=== PATIENT | female | born 1975 | race Caucasian/White ===

== ENCOUNTER 2024-12-01 12:28 | Emergency (ER) | payer MEDICAID, SELFPAY ==
[2024-12-01 12:29] VITALS: BP 136/89; PULSE 72; TEMP 36.7; O2SAT 99; BMI 34.9
[2024-12-01 13:14] LABS: Basophils # 0.1 10^3/uL (0.0-0.1); Basophils % 0.7 %; Eosinophils # 0.2 10^3/uL (0.0-0.8); Eosinophils % 2.1 %; Hematocrit 42.5 % (36-47); Lymphocytes # 1.6 10^3/uL (0.8-4.8); Lymphocytes % 17.6 %; Mean Corpuscular HGB Conc 32.7 g/dL (30-55); Mean Corpuscular Hemoglobin 27.7 pg (27-33); Mean Corpuscular Volume 84.7 fl (85-98); Mean Platelet Volume 10.8 fL (7.4-10.4); Monocytes # 0.5 10^3/uL (0.2-0.9); Monocytes % 5.7 %; Neutrophils # 6.55 10^3/uL (1.8-7.7); Neutrophils % 73.5 %; Nucleated Red Blood Cells % 0 %; Platelet Count 266 10^3/cmm (157-399); Red Blood Count 5.02 10^6/uL (3.85-5.65); Red Cell Distribution Width 13.2 % (12.1-15.1); White Blood Count 8.92 10^3/uL (3.29-11.43)
[2024-12-01 13:27] LABS: HCG, Serum Qual Negative (Negative)
[2024-12-01 13:34] LABS: Alanine Aminotransferase 50 U/L (0-33); Albumin Level 4.1 g/dL (3.5-5.2); Alkaline Phosphatase 138 U/L (35-105); Anion Gap 14.7 (5-19); Aspartate Amino Transferase 48 U/L (0-32); Blood Urea Nitrogen 10 mg/dL (6-20); Calcium 9.4 mg/dL (8.5-10.5); Carbon Dioxide 24 mmol/L (22-29); Chloride 106 mmol/L (98-107); Creatinine Clr Calc Pharmacy 124.2362; Globulin 3.5 g/dL (1.3-4.6); Glomerular Filtration Rate 89.3 mL/min (90-130); Glucose 126 mg/dL (65-115); Osmolality Calculated 293 mOsm/kg (285-295); Potassium 3.7 mmol/L (3.5-5.1); Sodium 141 mmol/L (136-145); Total Bilirubin 0.3 mg/dL (0.15-1.2); Total Protein 7.6 g/dL (6.6-8.7)
[2024-12-01] MEDS: LORazepam 2 mg Tablet PO (14:05)
[2024-12-01 14:10] LABS: Bilirubin Urine Negative (Negative); Blood Urine Negative (Negative); Glucose Urine UA Negative (Normal); Ketones Urine Negative (Negative); Leukocyte Esterase Urine Negative (Negative); Nitrate Urine Negative (Negative); Protein Urine Negative (Negative); Specific Gravity, Urine 1.006 (1.005-1.030); Urine Appearance Clear (CLEAR); Urine Color Yellow (Yellow); Urobilinogen Urine 0.2 mg/dL (Negative); pH Urine 5.5 (5-7)
[2024-12-01 14:12] LABS: Add Urine Microscopic? YES; Bacteria Urine None Seen /hpf; Hyaline Casts Urine 0-4 /lpf; RBC Urine 0-2 /hpf (0-2); Squamous Epithelial Cell Urine 0-5 /hpf (0-5); WBC Urine 0-5 /hpf (0-5)
[2024-12-01 14:18] LABS: Amphetamines Screen Urine Positive (Negative); Barbiturates Screen Urine Negative (Negative); Benzodiazepines Screen Urine Negative (Negative); Cocaine Screen Urine Negative (Negative); Opiate Screen Urine Negative (Negative); PCP Screen Urine Negative (Negative); THC Screen Urine Negative (Negative)
--- NOTE | 2024-12-01 14:22 | W.ED.ANXIETY ---
HPI - Anxiety General: Chief Complaint: Anxiety Stated Complaint: MHE Time Seen by Provider: 12/01/24 12:43 History of Present Illness: 49-year-old female presents emergency room complaint of increasing anxiety depression of the last couple days she has a history of very anxious today she denies suicidal or homicidal ideation she relates her symptoms to recent loss of some close family members. Patient is very tearful does answer questions fairly well. She denies any recent illness denies any thoughts of harming herself. She was seen yesterday at [facility] for intake and advised her to come to the urgency room. She presents today. She is on venlafaxine no recent medication changes Associated symptoms: Deny chest pain, chills or fever(s) Related Data Home Medications ?Medication ?Instructions ?Recorded ?Confirmed Vital Lax 1 tab PO DAILY 12/01/24 12/01/24 albuterol sulfate 90 mcg/actuation 2 puff inhalation Q6H PRN 12/01/24 12/01/24 aerosol inhaler (Ventolin HFA) Shortness Of Breath Or Wheezing aripiprazole 2 mg tablet 2 mg PO DAILY 12/01/24 12/01/24 azithromycin 250 mg tablet See Rx Instructions .Route .COMPLEX 12/01/24 12/01/24 cetirizine 10 mg tablet (Allergy 10 mg PO DAILY 12/01/24 12/01/24 Relief (cetirizine)) cholecalciferol (vitamin D3) 25 25 mcg PO DAILY 12/01/24 12/01/24 mcg (1,000 unit) tablet (Vitamin D3) cyanocobalamin (vitamin B-12) 500 500 mcg PO DAILY 12/01/24 12/01/24 mcg tablet (Vitamin B-12) famotidine 40 mg tablet 40 mg PO BID 12/01/24 12/01/24 fluticasone propionate 50 2 spray intranasal DAILY 12/01/24 12/01/24 mcg/actuation nasal spray,suspension meloxicam 7.5 mg tablet 7.5 mg PO DAILY 12/01/24 12/01/24 ondansetron 4 mg disintegrating 4 mg PO Q6H PRN Nausea And Vomiting 12/01/24 12/01/24 tablet oxybutynin chloride 5 mg 5 mg PO DAILY 12/01/24 12/01/24 tablet,extended release 24 hr riboflavin (vitamin B2) 50 mg 50 mg PO DAILY 12/01/24 12/01/24 tablet (Vitamin B-2) topiramate 50 mg tablet 50 mg PO BID 12/01/24 12/01/24 ubrogepant 100 mg tablet (Ubrelvy) 100 mg PO DAILY PRN Migraine 12/01/24 12/01/24 Headache venlafaxine 37.5 mg 37.5 mg PO DAILY 12/01/24 12/01/24 capsule,extended release 24 hr Previous Rx's ?Medication ?Instructions ?Recorded hydroxyzine HCl 10 mg tablet 10 mg PO TID PRN anxiety #10 tabs 12/01/24 Allergies Allergy/AdvReac Type Severity Reaction Status Date / Time tramadol Allergy Unknown Verified 12/01/24 12:35 Review of Systems Const: Denies: fever(s) or chills Card: Denies: chest pain Resp: Denies: dyspnea GI: Denies: abdominal pain : Denies: dysuria, urinary frequency or urinary urgency Musc: Denies: neck pain or back pain Skin/Breast: Denies: rash Physical Exam Const: GENERAL APPEARANCE: cooperative ORIENTATION/CONSCIOUSNESS: Yes awake, Yes oriented to person, Yes oriented to place and Yes oriented to time HENMT: COMMON NORMALS: normocephalic, atraumatic and hearing grossly normal bilaterally HEAD & SCALP: normocephalic and atraumatic Resp: COMMON NORMALS: normal respiratory effort, No retractions, No use of accessory muscles and clear to auscultation bilaterally AUSCULTATION: clear to auscultation bilaterally Cardio: COMMON NORMALS: regular rate, regular rhythm and No murmurs present (Cardio) RATE: regular rate RHYTHM: regular rhythm GI: COMMON NORMALS: Soft to palpation and No hepatosplenomegaly present AUSCULTATION: Yes normoactive bowel sounds PALPATION: Yes Soft to palpation, No Tenderness to palpation present (GI), No Guarding due to palpation present (GI) and Yes No hepatosplenomegaly present Extremity: COMMON NORMALS: normal to inspection, capillary refill normal, no clubbing, cyanosis or edema, no calf tenderness and no pedal edema Neuro: SENSORIUM/ORIENTATION: Yes oriented to person, Yes oriented to place and Yes oriented to time Skin: COMMON NORMALS: no rashes or lesions noted GENERAL SKIN EXAM: no rashes or lesions noted Course Vital Signs: Vital signs: Vital Signs Temperature 98.0 F 12/01/24 12:29 Pulse Rate 72 12/01/24 14:33 Blood Pressure 142/86 12/01/24 14:33 Pulse Oximetry 96 12/01/24 14:33 Oxygen Delivery Me thod Room Air 12/01/24 12:29 MDM - Anxiety Medical Decision Making Patient tearful but mostly anxious she repeatedly denies homicidal or suicidal ideation. She does not fit to methamphetamine use with the last day or 2. Discussed with her that that can increase her anxiety she expressed understanding she is very receptive to it. Will discharge her home with hydroxyzine to use as needed encouraged her to follow-up at the [facility] clinic within get her roles and work with other treatment options for long-term to help her with anxiety. Patient encouraged to abstain from recreational drug use. Medical Records I reviewed the patient's medical records. Lab Data I reviewed the patient's lab results. 12/01/24 12:58 12/01/24 12:58 Laboratory Results WBC 8.92 10^3/uL (3.29-11.43) 12/01/24 12:58 RBC 5.02 10^6/uL (3.85-5.65) 12/01/24 12:58 Hgb 13.90 g/dL (11.27-16.99) 12/01/24 12:58 Hct 42.5 % (36-47) 12/01/24 12:58 MCV 84.7 fl (85-98) L 12/01/24 12:58 MCH 27.7 pg (27-33) 12/01/24 12:58 MCHC 32.7 g/dL (30-55) 12/01/24 12:58 RDW 13.2 % (12.1-15.1) 12/01/24 12:58 Plt Count 266 10^3/cmm (157-399) 12/01/24 12:58 MPV 10.8 fL (7.4-10.4) H 12/01/24 12:58 Neut % (Auto) 73.5 % 12/01/24 12:58 Lymph % (Auto) 17.6 % 12/01/24 12:58 [place] % (Auto) 5.7 % 12/01/24 12:58 Eos % (Auto) 2.1 % 12/01/24 12:58 Baso % (Auto) 0.7 % 12/01/24 12:58 Neut # (Auto) 6.55 10^3/uL (1.8-7.7) 12/01/24 12:58 Lymph # (Auto) 1.6 10^3/uL (0.8-4.8) 12/01/24 12:58 [place] # (Auto) 0.5 10^3/uL (0.2-0.9) 12/01/24 12:58 Eos # (Auto) 0.2 10^3/uL (0.0-0.8) 12/01/24 12:58 Baso # (Auto) 0.1 10^3/uL (0.0-0.1) 12/01/24 12:58 Nucleated RBC % (auto) 0 % 12/01/24 12:58 Nucleated RBCs # 0.0 /100WBC 12/01/24 12:58 Sodium 141 mmol/L (136-145) 12/01/24 12:58 Potassium 3.7 mmol/L (3.5-5.1) 12/01/24 12:58 Chloride 106 mmol/L (98-107) 12/01/24 12:58 Carbon Dioxide 24 mmol/L (22-29) 12/01/24 12:58 Anion Gap 14.7 (5-19) 12/01/24 12:58 BUN 10 mg/dL (6-20) 12/01/24 12:58 Creatinine 0.7 mg/dL (0.5-0.9) 12/01/24 12:58 GFR Calculation 89.3 mL/min (90-130) L 12/01/24 12:58 Glucose 126 mg/dL (65-115) H 12/01/24 12:58 Calculated Osmolality 293 mOsm/kg (285-295) 12/01/24 12:58 Calcium 9.4 mg/dL (8.5-10.5) 12/01/24 12:58 Total Bilirubin 0.3 mg/dL (0.15-1.2) 12/01/24 12:58 AST 48 U/L (0-32) H 12/01/24 12:58 ALT 50 U/L (0-33) H 12/01/24 12:58 Alkaline Phosphatase 138 U/L (35-105) H 12/01/24 12:58 Total Protein 7.6 g/dL (6.6-8.7) 12/01/24 12:58 Albumin 4.1 g/dL (3.5-5.2) 12/01/24 12:58 Globulin 3.5 g/dL (1.3-4.6) 12/01/24 12:58 HCG, Qual Negative (Negative) 12/01/24 12:58 Urine Color Yellow (Yellow) 12/01/24 13:02 Urine Appearance Clear (CLEAR) 12/01/24 13:02 Urine pH 5.5 (5-7) 12/01/24 13:02 Ur Specific [place] 1.006 (1.005-1.030) 12/01/24 13:02 Urine Protein Negative (Negative) 12/01/24 13:02 Urine Glucose (UA) Negative (Normal) 12/01/24 13:02 Urine Ketones Negative (Negative) 12/01/24 13:02 Urine Blood Negative (Negative) 12/01/24 13:02 Urine Nitrate Negative (Negative) 12/01/24 13:02 Urine Bilirubin Negative (Negative) 12/01/24 13:02 Urine Urobilinogen 0.2 mg/dL (Negative) 12/01/24 13:02 Ur Leukocyte Esterase Negative (Negative) 12/01/24 13:02 Urine RBC 0-2 /hpf (0-2) 12/01/24 13:02 Urine WBC 0-5 /hpf (0-5) 12/01/24 13:02 Ur Squamous Epith Cells 0-5 /hpf (0-5) 12/01/24 13:02 Amorphous Sediment Not Reportable 12/01/24 13:02 Urine Bacteria None seen /hpf (NONE) 12/01/24 13:02 Hyaline Casts 0-4 /lpf H 12/01/24 13:02 Urine Opiates Screen Negative ng/mL (Negative) 12/01/24 13:02 Ur Barbiturates Screen Negative ng/mL (Negative) 12/01/24 13:02 Ur Phencyclidine Scrn Negative ng/mL (Negative) 12/01/24 13:02 Ur Amphetamines Screen Positive ng/mL (Negative) H 12/01/24 13:02 U Benzodiazepines Scrn Negative ng/mL (Negative) 12/01/24 13:02 Urine Cocaine Screen Negative ng/mL (Negative) 12/01/24 13:02 U Marijuana (THC) Screen Negative ng/mL (Negative) 12/01/24 13:02 All radiology interpretation(s) finalized by discharge Discharge Plan Discharge Patient Disposition: Home Clinical Impression: Acute anxiety Condition: Stable Prescriptions: New hydroxyzine HCl 10 mg tablet 10 mg PO TID PRN (Reason: anxiety) Qty: 10 0RF No Action venlafaxine 37.5 mg capsule,extended release 24hr 37.5 mg PO DAILY cetirizine [Allergy Relief (cetirizine)] 10 mg tablet 10 mg PO DAILY azithromycin 250 mg tablet See Rx Instructions .ROUTE .COMPLEX Rx Instructions: TAKE 2 TABLETS BY MOUTH ON DAY 1, THEN TAKE 1 TABLET DAILY ON DAYS 2-5. famotidine 40 mg tablet 40 mg PO BID meloxicam 7.5 mg tablet 7.5 mg PO DAILY oxybutynin chloride 5 mg tablet extended release 24hr 5 mg PO DAILY albuterol sulfate [Ventolin HFA] 90 mcg/actuation HFA aerosol inhaler 2 puff INHALATION Q6H PRN (Reason: Shortness Of Breath Or Wheezing) ondansetron 4 mg tablet,disintegrating 4 mg PO Q6H PRN (Reason: Nausea And Vomiting) fluticasone propionate 50 mcg/actuation spray,suspension 2 spray INTRANASAL DAILY topiramate 50 mg tablet 50 mg PO BID aripiprazole 2 mg tablet 2 mg PO DAILY Ubrelvy 100 mg tablet 100 mg PO DAILY PRN (Reason: Migraine Headache) cyanocobalamin (vitamin B-12) [Vitamin B-12] 500 mcg Tablet 500 mcg PO DAILY riboflavin (vitamin B2) [Vitamin B-2] 50 mg Tablet 50 mg PO DAILY cholecalciferol (vitamin D3) [Vitamin D3] 25 mcg (1,000 unit) Tablet 25 mcg PO DAILY Vital Lax 1 tab PO DAILY Discharge Orders: Discharge ED (Routine); Ordered 12/01/24 Ordered By: Michi Cabrera Referrals: Ho Mishra DO [Primary Care Provider] - Discharge Diet: Usual diet Discharge Activity: Resume usual activity Patient Instructions: Opioid Safety, Pain Management Activity Restrictions/Additional Instructions: Thank you for choosing [facility] for your healthcare needs today. It is very important that you follow up as instructed or that you return to the Emergency Department should you have concerns or if your condition changes or worsens in any way. You are seen in the emergency room with complaint of anxiety. You are given Ativan in the emergency room and discharged home hydroxyzine to use as needed. Follow-up with [facility] Print Language: [place] Coding Level of Care Code ED [employer] for Hector Trinidad
[2024-12-01 14:33] VITALS: BP 142/86; PULSE 72; O2SAT 96
== END 2024-12-01 14:37 | disposition home or self-care (01) ==
PROVIDERS: Emergency Provider Family Medicine; PCP Family Medicine
DX: F41.8 Other specified anxiety disorders (principal)
CPT/HCPCS: 36415; 80053; 80306; 81001; 84703; 85025; 99283; J9999